=== PATIENT | male | born 1955 | race Caucasian/White ===

== ENCOUNTER 2021-08-30 11:20 | Day surgery (SDC) | payer OTHER ==
[2021-08-27 13:40] LABS: COVID AG,FIA SOURCE NASOPHARYNGEAL
[~2021-08-30] VITALS: Ht 182.9 cm; Wt 88.6 kg
[~2021-08-30 11:20] MED LIST: APIX5TAB PO; ATOR10TA84 PO; BUPIVACAINE LIPOSOME/PF 1.3%-13.3MG/ML SUSPENSION 20 ML VIAL INJ ONE; DICL75TA5 PO; DILT120C12 PO; HYDR25TA2 PO; OMEG-135 PO; RINGERS SOLUTION,LACTATED 1,000 ML IV ONE; SOTA80 PO
[2021-08-30] MEDS ORDERED: 0.9% SODIUM CHLORIDE 10 ML VIAL IVP ONE (11:21)
[2021-08-30] MEDS ORDERED: ROCURONIUM BROMIDE 10 MG/ML 5 ML VIAL IVP ONE (11:21)
[2021-08-30] MEDS ORDERED: ONDANSETRON HCL 4 MG/2 ML VIAL IVP ONE (11:21)
[2021-08-30] MEDS ORDERED: FentaNYL CITRATE PF 100 MCG/2 ML VIAL IVP ONE (11:21)
[2021-08-30] MEDS ORDERED: LIDOCAINE/PF 2% 5 ML VIAL IM ONE (11:21)
[2021-08-30] MEDS ORDERED: DEXAMETHASONE SOD PHOS 4 MG/ML VIAL IVP ONE (11:21)
[2021-08-30] MEDS ORDERED: PROPOFOL 1% 20 ML VIAL IVP ONE (11:21)
[2021-08-30] MEDS ORDERED: MIDAZOLAM HCL 2 MG/2 ML VIAL IVP ONE (11:21)
[2021-08-30] MEDS ORDERED: KETOROLAC TROMETHAMINE 60 MG/2 ML VIAL IM ONE (11:21)
[2021-08-30] MEDS ORDERED: LIDOCAINE/PF 1% 30 ML VIAL ONE (11:48)
[2021-08-30] MEDS ORDERED: BUPIVACAINE 0.25%/EPI 1:200,000/PF 10 ML VIAL ONE (11:48)
[2021-08-30] MEDS ORDERED: BUPIVACAINE HCL/PF 0.25% 30 ML VIAL ONE (11:48)
[2021-08-30] MEDS ORDERED: BUPIVACAINE HCL/PF 0.5% 30 ML VIAL ONE (12:40)
[2021-08-30] MEDS ORDERED: ACETAMINOPHEN 1000 MG/ISO-OSM 100 ML IV ONE (12:40)
[2021-08-30] MEDS ORDERED: EPINEPHrine 1:1,000 [1 MG/ML] AMP ONE (12:50)
[2021-08-30] MEDS ORDERED: HYDROmorphone 2 MG/ML VIAL IVP PRN (14:30)
[2021-08-30] MEDS ORDERED: FentaNYL CITRATE PF 100 MCG/2 ML VIAL IVP PRN (14:30)
[2021-08-30] MEDS ORDERED: MEPERIDINE-PF 25 MG/ML VIAL IVP PRN (14:30)
[2021-08-30] MEDS ORDERED: BACITRACIN 28 GM OINTMENT TP ONE (15:53)
[2021-08-30] MEDS ORDERED: OXYGEN THERAPY IH SCH (20:00)
== END 2021-08-30 18:50 | disposition home or self-care (01) ==
LOC: SURGERY 11:20
PROVIDERS: ATTEND Orthopaedic Surgery Hand Surgery
DX: S46.011A Strain of muscle(s) and tendon(s) of the rotator cuff of right shoulder, initial encounter (principal); M75.41 Impingement syndrome of right shoulder; S43.491A Other sprain of right shoulder joint, initial encounter; G89.18 Other acute postprocedural pain; I10 Essential (primary) hypertension; G89.29 Other chronic pain; M19.011 Primary osteoarthritis, right shoulder; E78.5 Hyperlipidemia, unspecified; X58.XXXA Exposure to other specified factors, initial encounter; Y93.89 Activity, other specified; Z91.013 Allergy to seafood; Y92.89 Other specified places as the place of occurrence of the external cause; Y99.8 Other external cause status; Z79.899 Other long term (current) drug therapy; Z98.890 Other specified postprocedural states
CPT/HCPCS: 29823; 29824; 29826; 29827; 64415; 87426; C1713; C9290; C9803; J0131; J0171; J0690; J1100; J1885; J2250; J2405; J2704; J3010; J3490 ×4; J7120